=== PATIENT | female | born 1985 | race Caucasian/White ===

== ENCOUNTER 2020-04-28 09:42 | Outpatient (REF) | payer OTHER, SELFPAY ==
[2020-04-28 10:00] LABS: COVID-19 Test Negative (Negative)
== END 2020-04-28 09:43 | disposition home or self-care (01) ==
LOC: HO.EMPCOV 09:42
PROVIDERS: Visit Provider Internal Medicine
DX: Z20.822 Contact with and (suspected) exposure to COVID-19 (principal)
CPT/HCPCS: 36415; 87635; C9803